=== PATIENT | male | born 1990 | race Caucasian/White ===

== ENCOUNTER → 2017-11-26 | Outpatient (CLI) | payer BC ==
[~2017-11-26] MED LIST: DICY20TA70 PO; FEXO1TAB60 PO; KET10 PO; LOR5/325 PO; NO ROUTINE MEDS.; ONDA4TAB97 PO; PANT40TA63 PO; PANT40TA65 PO; PER PO; PROM12.546 PO; SUCR1TAB85 PO
--- NOTE | 2017-11-26 10:13 | RADIOLOGY IMAGING REPORT ---
FACILITY: [facility] PATIENT NAME: Akash Moreland : 1990 MR: [id number] V: [id number] EXAM DATE: ORDERING PHYSICIAN: CHERELLE LOVE TECHNOLOGIST: Location: [facility] Patient: Akash Moreland : 1990 Visit/Account:[id number] Date of Sevice: 11/26/2017 TESTICULAR HISTORY: Right testicular pain COMPARISON: March 28, 2017 FINDINGS: Testes: Right testicle measures 3.6 x 1.8 x 2.9 cm. The left testicle measures 3.2 x 1.2 x 2.6 cm S ymmetric and unremarkable blood flow documented by color and Duplex Doppler ultrasound. Epididymides: The head of the epididymis on the right measures 0.9 cm. The head epididymis on the le ft measures 1.5 cm. Several cystic structures in the head of the epididymis on the left. The larges t measures 4.5 mm in diameter contains internal echoes. Blood flow is unremarkable in each epididymi s by color Doppler ultrasound. Hydrocele: None. Varicocele: None. IMPRESSION: The head of the epididymis on the left is more prominent than the right and contains several cystic s tructures, the largest measures 4.5 mm in diameter and contains internal echoes. This could represen t a debris-filled cyst. The findings are similar to the prior study. Report Dictated By: Nova Das MD at 11/26/2017 9:00 AM Report E-Signed By: Nova Das MD at 11/26/2017 10:09 AM WSN:[id number]
== END ==
LOC: US 11-25 01:55
DX: N50.811 Right testicular pain (principal)
CPT/HCPCS: 76870